=== PATIENT | female | born 1985 | race Caucasian/White ===

== ENCOUNTER 2017-08-10 15:24 | Inpatient (IN) | payer BC ==
[2017-08-10 16:33] VITALS: BMI 26.6
[2017-08-10 17:27] LABS: URINE APPEARANCE CLEAR; URINE BILIRUBIN NEGATIVE (<2.0 mg/dL); URINE COLOR STRAW; URINE GLUCOSE (UA) NEGATIVE (NEGATIVE); URINE KETONE NEGATIVE (NEGATIVE); URINE NITRITE NEGATIVE (NEGATIVE); URINE PROTEIN NEGATIVE (NEGATIVE); URINE UROBILINOGEN NEGATIVE mg/dL (0.2-1.0)
[2017-08-10 17:31] LABS: URINE LEUK ESTERASE 1+ (NEGATIVE)
[2017-08-10 17:33] LABS: EPI CELLS RARE /HPF (FEW); URINE BACTERIA RARE /hpf (NONE SEEN)
[2017-08-10 18:28] LABS: BASO % 0.4 % (0-2.0); EOS % 0.6 % (0-4.5); HEMATOCRIT 34.4 % (32.4-45.2); HEMOGLOBIN 11.4 GM/dL (10.7-15.3); LYMPH % 25.4 % (8-40); MCH 27.7 pg (25.7-33.7); MCHC 33.2 g/dl (32.0-36.0); MEAN CELL VOLUME 83.5 fl (80-96); MEAN PLT VOLUME 8.1 fl (7.5-11.1); MONO % 5.6 % (3.8-10.2); PLATELET COUNT 209 K/MM3 (134-434); RBC 4.12 M/mm3 (3.60-5.2); RDW 18.7 % (11.6-15.6)
[2017-08-10 18:30] LABS: RETICULOCYTES 1.9 % (0.5-1.5)
[2017-08-10 18:48] LABS: INR 0.88 (0.82-1.09)
[2017-08-10 18:58] LABS: ANION GAP 11 (8-16); BLOOD UREA NITROGEN 12 mg/dL (7-18); CALCIUM 8.7 mg/dL (8.5-10.1); CHLORIDE 103 mmol/L (98-107); CO2 24 mmol/L (21-32); CREATININE 0.7 mg/dL (0.55-1.02); GAMMA GLUTAMYL TRANSPEPTIDASE 11 U/L (5-85); GLUCOSE,RANDOM 109 mg/dL (74-106); POTASSIUM 3.6 mmol/L (3.5-5.1); SGOT/AST 20 U/L (15-37); SGPT/ALT 10 U/L (12-78); SODIUM 138 mmol/L (136-145); URIC ACID 4.9 mg/dL (2.6-7.2)
[2017-08-10] MEDS ORDERED: DINOPROSTONE 10 MG VAGINAL SUPPOSITORY VG ONE (20:45)
--- NOTE | 2017-08-10 21:44 | HP ---
Past Medical History - Admission History of Present Illness: 31 y/o female with h/o x 2 here for induction of labor 2/2 GHTN. Otherwise uncomplicated . Pt c/o occasional contractions, but nothing consistent. Denies LOF/VB. +FM. GBS negative/HIV negative. History Source: Medical Record Limitations to Obtaining History: No Limitations - Past Medical History Cardiovascular: No: AFIB, Aneurysm, Aortic Insufficiency, Aortic Stenosis, CAD, CHF, Deep Vein Thrombosis, HTN, Hyperlipdemia, NM, Mitral Insufficiency, Mitral Stenosis, Murmur, Pulmonary Hypertension, Other Gastrointestinal: No: Ascites, Cancer, Constipation, Crohn's Disease, Diverticulitis, Diverticulosis, Esophageal Varices, Gastritis, GERD, GI Bleed, Hemorrhoids, Hiatal Hernia, Inflamatory Bowel Disease, Irritable Bowel Disease, Pancreatitis, Peptic Ulcer Disease, Ulcerative Colitis, Other Reproductive: No: Fibroids, PID ...: 3 ...Para: 2 ...Term: 2 ...: 0 ...Spon : 0 ...Induced : 0 ...Multiple Gestation: 0 ...LMP: 11/04/16 ... Weeks Gestation by Dates: 39.6 ...EDC by Dates: 08/11/17 Infectious Disease: No: HIV, MRSA, STD's Psych: No: Anxiety, Depression Musculoskeletal: No: Bursitis, Chronic low back pain, Hemiparesis, Hemiplegia, Osteoarthritis, Paraplegia, Other Endocrine: No: Diabetes Mellitus, Hypothyroidism - Past Surgical History Past Surgical History: Yes: None Hx Myomectomy: No Hx Transabdominal Cerclage: No - Smoking History Smoking history: Never smoked Have you smoked in the past 12 months: No - Alcohol/Substance Use Hx Alcohol Use: No History of Substance Use: reports: None - Social History Usual Living Arrangement: Yes: With Spouse History of Recent Travel: No Home Medications - Allergies Allergies/Adverse Reactions: Allergies Allergy/AdvReac Type Severity Reaction Status Date / Time No Known Allergies Allergy Verified 08/10/17 16:21 - Home Medications Home Medications: Ambulatory Orders Vit27&Calcium/Iron/FA [ Rx 1 Tablet] 1 tab PO DAILY 07/12/11 Review of Systems - Review of Systems Constitutional: reports: No Symptoms Eyes: reports: No Symptoms HENT: reports: No Symptoms Neck: reports: No Symptoms Cardiovascular: reports: No Symptoms Respiratory: reports: No Symptoms Gastrointestinal: reports: No Symptoms Genitourinary: reports: No Symptoms, Other (occasional contractions). denies: Vaginal Bleeding Breasts: reports: No Symptoms Reported Musculoskeletal: reports: No Symptoms Integumentary: reports: No Symptoms Neurological: reports: No Symptoms Endocrine: reports: No Symptoms Hematology/Lymphatic: reports: No Symptoms Psychiatric: reports: No Symptoms Physical Exam - Maternity Vital Signs: Vital Signs Temperature 98.2 F 08/10/17 20:25 Pulse Rate 83 08/10/17 21:00 Respiratory Rate 20 08/10/17 21:00 Blood Pressure 126/77 08/10/17 21:00 O2 Sat by Pulse Oximetry (%) Constitutional: Yes: Well Nourished, No Distress, Calm Eyes: Yes: Conjunctiva Clear, EOM Intact HENT: Yes: Atraumatic, Normocephalic Neck: Yes: Supple, Trachea Midline Cardiovascular: Yes: Regular Rate and Rhythm Lungs: Clear to auscultation - Abdominal Exam/OB Fundal Height: 39 Number of Fetuses: Single Presentation: Vertex Contractions: Yes Regularity: Irregular Intensity: Mild Heart Rate (range): 130 Category: I Accelerations: Uniform Decelerations: None - Vaginal Exam/OB Dilatation (cm): 0 Effacement (%): 50 Amniotic Membrane Status: Intact Presentation: Vertex/Position Station: -3 - Physical Exam Psychiatric: Yes: Alert, Oriented - Labs Lab Results: CBC, BMP 08/10/17 17:15 08/10/17 17:15 Hemorrhage Risk Assessment - Risk Factors Medium Risk Factors: Yes: None High Risk Factors: Yes: None Risk Score: 1 Risk Level: Medium Risk Problem List - Problems (1) Gestational hypertension affecting third Code(s): O13.9 - GESTATIONAL HTN W/O SIGNIFICANT PROTEINURIA, UNSP TRIMESTER (2) Term Code(s): Z34.80 - ENCOUNTER FOR SUPRVSN OF NORMAL , UNSP TRIMESTER Assessment/Plan 31 y/o with SIUP at 39.6 weeks, IOL for gHTN - AFVSS - FHTS cat 1 - gHTN - labs normal, BPS WNL here on L&D, will monitor - IOL, cervidil placed, for removal/reassess in 12 hours - GBS negative
[2017-08-10] MEDS ORDERED: PROMETHAZINE HCL 25 MG/1 ML VIAL IVPB ONE (22:00)
[2017-08-10] MEDS ORDERED: BUTORPHANOL TARTRATE 1 MG/ML VIAL IVPB ONE (22:00)
[2017-08-11] MEDS ORDERED: ELECTROLYTE-148 SOLN 1,000 ML IV SCH
[2017-08-11] MEDS ORDERED: BUTORPHANOL TARTRATE 1 MG/ML VIAL ONE ×2 (02:16)
[2017-08-11] MEDS ORDERED: PROMETHAZINE HCL 25 MG/1 ML VIAL ONE (02:16)
[2017-08-11] MEDS ORDERED: OXYTOCIN 20 UNITS in 0.9% NS 20 UNIT/1,000 ML INFUS.BAG IV ONE ×2 (02:52→06:26)
[2017-08-11] MEDS ORDERED: LIDOCAINE HCL 1% PRESERVATIVE FREE - 30ML VIAL ONE (02:52)
--- NOTE | 2017-08-11 02:52 | PN ---
Ante-Partal Exam - Subjective Subjective: Pt s/p stadol/phenergan for pain control. Now comfortable/sleeping through contractions. Vital Signs: Vital Signs Temperature 98.6 F 08/11/17 00:00 Pulse Rate 77 08/11/17 02:00 Respiratory Rate 20 08/11/17 02:00 Blood Pressure 143/92 08/11/17 02:00 O2 Sat by Pulse Oximetry (%) Bleeding: Yes Bleeding Description: Mild Headache: No Visual changes: No Right upper quadrant pain: No - Contractions Contractions: Yes Regularity: Regular Intensity: Mild/Mod Monitor Mode: External - Exam during Labor Variability: Moderate Category: I Monitor Accelerations: Present Monitor Decelerations: Variable (non recurrent) Exam: Vaginal Dilatation (cm): 10 Effacement (%): 100 Amniotic Membrane Status: Intact Presentation: Vertex Station: 0 - Assessment/Plan Assessment/Plan: 31 y/o with SIUP at 40 weeks, IOL for gHTN - AFVSS - FHTs cat 1 overall, occasional isolated variables - s/p cervidil, pt now fully dilated, will begin pushing once mom more awake ( took stadol/phenergan)
[2017-08-11] MEDS: OXYTOCIN 20 UNITS in 0.9% NS 20 UNIT/1,000 ML INFUS.BAG IV SCH (03:22)
[2017-08-11] MEDS ORDERED: IBUPROFEN 600 MG TABLET (FP) PO PRN (03:27)
[2017-08-11] MEDS ORDERED: BENZOCAINE 20% 57 GM BOTTLE TP PRN (03:27)
[2017-08-11] MEDS ORDERED: WITCH HAZEL 50% (TUCKS) 40 PAD/JAR PAD TP PRN (03:27)
[2017-08-11] MEDS ORDERED: ACETAMINOPHEN 325 MG TABLET (FP) PO PRN (03:27)
[2017-08-11] MEDS ORDERED: BENZOCAINE 28 GM HEMORRHOIDAL OINTMENT TP PRN (03:27)
[2017-08-11] MEDS ORDERED: METHYLERGONOVINE MALEATE 0.2 MG/1 ML AMP IM PRN (03:27)
[2017-08-11] MEDS ORDERED: BISACODYL 10 MG SUPP.RECT RC PRN (03:27)
--- NOTE | 2017-08-11 03:27 | PN ---
Delivery - Delivery Vaginal Delivery: No Problems Type of Anesthesia: Local (10cc of 1% lidocaine injected into perineum after delivery prior to repair of 1st degree laceration) Episiotomy/Laceration: 1st degree EBL (cc): 300 Delivery, Single - Stages of Labor Date of Delivery: 08/11/17 Time of Delivery: 03:13 Date Placenta Delivered: 08/11/17 Time Placenta Delivered: 03:22 Placenta: Yes: Spontaneous - Condition of Infant Infant Gender: Male Position: Right, OP - 1 Minute Total Score: 9 5 Minutes Total Score: 9 - [place] Feeding Plan Initial Plan: Exclusive throughout hospitalization Remarks - Remarks Remarks: 31 y/o s/p normal from ROP position anterior shoulder (left) delivered with ease along with remainder of cord clamped and cut mouth and nose bulb suctioned 1st degree laceration noted, repaired with 2-0 chromic after injection with 8cc 1% lidocaine placenta delivered in tact and spontaneously sponge count correct after delivery mom stable baby to well baby nursery
[2017-08-11] MEDS ORDERED: TUBERCULIN PPD 5 TU/0.1ML SYRINGE (IN PATIENT USE ONLY) ID ONE (04:30)
[2017-08-11] MEDS: PRENATAL VITAMINS W/ FOLIC ACID TABLET (FP) PO SCH (09:45)
[2017-08-12 07:30] LABS: BASO % 0.5 % (0-2.0); EOS % 1.2 % (0-4.5); HEMATOCRIT 28.8 % (32.4-45.2); HEMOGLOBIN 9.8 GM/dL (10.7-15.3); LYMPH % 27.2 % (8-40); MCH 28.5 pg (25.7-33.7); MEAN CELL VOLUME 83.8 fl (80-96); MEAN PLT VOLUME 7.3 fl (7.5-11.1); MONO % 6.7 % (3.8-10.2); NEUT % 64.4 % (42.8-82.8); PLATELET COUNT 168 K/MM3 (134-434); RBC 3.44 M/mm3 (3.60-5.2); RDW 18.5 % (11.6-15.6)
[2017-08-12] MEDS: PRENATAL VITAMINS W/ FOLIC ACID TABLET (FP) PO SCH (10:00)
[2017-08-12] MEDS ORDERED: DIPHTH,PERTUSS(ACELL),TET 0.5 ML DISP.SYRIN IM ONE (12:00)
--- NOTE | 2017-08-12 15:16 | PN ---
Post Note - Post Date of Delivery: 08/11/17 Post Day: 1 Vital Signs: Vital Signs - 24 hr 08/11/17 08/12/17 21:19 08:54 Temperature 98.1 F 97.7 F Pulse Rate 88 73 Respiratory 20 18 Rate Blood Pressure 118/86 129/78 Labs: Laboratory Results - last 24 hr 08/10/17 08/12/17 17:15 07:06 WBC 10.0 RBC 3.44 L Hgb 9.8 L D Hct 28.8 L D MCV 83.8 MCH 28.5 MCHC 34.0 RDW 18.5 H Plt Count 168 MPV 7.3 L Neutrophils % 64.4 Lymphocytes % 27.2 Monocytes % 6.7 Eosinophils % 1.2 D Basophils % 0.5 Haptoglobin 122 - Subjective Subjective: No Complaints, Ambulating, Tolerating Diet - Objective Afebrile: Yes Breast: Not engorged Abdomen: Soft, Non-tender Uterus: Fundus firm Vagina: Scant lochia Extremities: Non-tender - Assessment/Plan (1) Status post normal vaginal delivery Assessment: S/P Normal Plan: Routine Care
[2017-08-12] MEDS: OXYTOCIN 20 UNITS in 0.9% NS 20 UNIT/1,000 ML INFUS.BAG IV SCH (17:44)
[2017-08-12] MEDS ORDERED: SENNOSIDES/DOCUSATE COMBO (SENNA PLUS) TABLET (UD) PO PRN (22:00)
--- NOTE | 2017-08-13 08:02 | DS ---
Physical Exam-JERKER Vital Signs: Vital Signs Temperature 98.0 F 08/12/17 22:00 Pulse Rate 81 08/12/17 22:00 Respiratory Rate 18 08/12/17 22:00 Blood Pressure 114/65 08/12/17 22:00 O2 Sat by Pulse Oximetry (%) 100 08/11/17 04:25 Constitutional: Yes: Well Nourished, No Distress, Calm Eyes: Yes: WNL, Conjunctiva Clear HENT: Yes: WNL, Atraumatic, Pharyngeal Erythema Neck: Yes: WNL, Supple, Trachea Midline Cardiovascular: Yes: WNL, Regular Rate and Rhythm Respiratory: Yes: WNL, Regular Gastrointestinal: Yes: WNL, Normal Bowel Sounds ...Rectal Exam: Yes: WNL Renal/: Yes: WNL Pelvis: Yes: WNL External Genitalia: Yes: Normal Internal Exam Deferred: Yes Vaginal Exam: Yes: Normal Uterus: Yes: Normal, Firm Adnexa: Normal: Right, Left ....Post : Yes: Uterus firm, Moderate lochia rubra Breast(s): Yes: WNL Musculoskeletal: Yes: WNL Extremities: Yes: WNL Edema: No Integumentary: Yes: WNL Neurological: Yes: WNL Psychiatric: Yes: Alert, Oriented Labs: CBC, BMP 08/12/17 07:06 08/10/17 17:15 Delivery - Delivery Vaginal Delivery: No Problems Type of Anesthesia: Local Episiotomy/Laceration: 1st degree EBL (cc): 300 Delivery, Single - Stages of Labor Date 1st Stage Initiatied: 08/10/17 Time 1st Stage Initiated: 20:20 Date 2nd Stage Initiated: 08/11/17 Time 2nd Stage Initiated: 02:45 Date of Delivery: 08/11/17 Time of Delivery: 03:13 Time Placenta Delivered: 03:22 Placenta: Yes: Spontaneous - Condition of Finance Lead/Manager Merchandise Present: No Gender: Male Weight: 7 lb 7 oz Position: Right, OP Total Hours ROM (Hrs/Mins): 0Hrs/2Mins - 1 Minute Total Score: 9 5 Minutes Total Score: 9 - Feeding Plan Initial Plan: Exclusive throughout hospitalization Discharge Summary Reason For Visit: INDUCTION Current Active Problems Gestational hypertension affecting third (Acute) Term (Acute) Condition: Good - Instructions Diet, Activity, Other Instructions: regular diet Referrals: Rachel Elizabeth DO [Staff Physician] - - Home Medications Comprehensive Discharge Medication List: Ambulatory Orders Vit27&Calcium/Iron/FA [ Rx 1 Tablet] 1 tab PO DAILY 07/12/11 motrin prn pain
[2017-08-13 09:12] VITALS: BP 115/65; PULSE 85; TEMP 98.4
[2017-08-13] MEDS: PRENATAL VITAMINS W/ FOLIC ACID TABLET (FP) PO SCH (09:43)
== END 2017-08-13 12:40 | disposition home or self-care (01) | DRG 775 ==
LOC: JLDR 15:24 → J3W 08-11 11:54
PROVIDERS: ADMIT Obstetrics & Gynecology; ATTEND Obstetrics & Gynecology
PROC: 0HQ9XZZ Repair Perineum Skin, External Approach (ICD-10-PCS; principal; 2017-08-11)
PROC: 10E0XZZ Delivery of Products of Conception, External Approach (ICD-10-PCS; 2017-08-11)
DX: O13.4 Gestational [pregnancy-induced] hypertension without significant proteinuria, complicating childbirth (principal); O70.0 First degree perineal laceration during delivery; Z3A.39 39 weeks gestation of pregnancy; Z37.0 Single live birth
CPT/HCPCS: 36415; 59409; 80048; 81003; 81015; 82977; 83010; 84450; 84460; 84550; 85025; 85032; 85044; 85610; 85730; 86593; 86850; 86900; 86901; 87389; 90715

== ENCOUNTER 2019-06-16 04:50 | Inpatient (IN) | payer BC ==
[2019-06-16 06:24] VITALS: BMI 28.0
[2019-06-16] MEDS ORDERED: PROMETHAZINE HCL 25 MG/1 ML VIAL IVPUSH ONE (06:28)
[2019-06-16] MEDS ORDERED: BUTORPHANOL TARTRATE 1 MG/ML VIAL IVPB ONE (06:28)
--- NOTE | 2019-06-16 06:28 | HP ---
Past Medical History - Primary Care Physician PCP:: Sherie Whiting - Admission Chief Complaint: Gestation Hypertension. Prodromal labor. AMA History of Present Illness: 33 yo EDC 06/23/2019 EGA 39 week admitted in labor No NIELSON no bleeding History Source: Patient Limitations to Obtaining History: No Limitations - Past Medical History ...: 4 ...Para: 3 ...Term: 3 ...: 0 ...Spon : 0 ...Induced : 0 ...LMP: 09/15/18 ... Weeks Gestation by Dates: 39.0 ...EDC by Dates: 06/23/19 ...EDC by Sono: 06/22/19 - Past Surgical History Past Surgical History: Yes: None - Smoking History Smoking history: Never smoked Have you smoked in the past 12 months: No - Alcohol/Substance Use Hx Alcohol Use: No History of Substance Use: reports: None - Social History History of Recent Travel: No Home Medications - Allergies Allergies/Adverse Reactions: Allergies Allergy/AdvReac Type Severity Reaction Status Date / Time No Known Allergies Allergy Verified 06/16/19 05:40 - Home Medications Home Medications: Ambulatory Orders Vit27&Calcium/Iron/FA [ Rx 1 Tablet] 1 tab PO DAILY 07/12/11 Review of Systems - Review of Systems Constitutional: reports: No Symptoms Eyes: reports: No Symptoms HENT: reports: No Symptoms Neck: reports: No Symptoms Cardiovascular: reports: No Symptoms Respiratory: reports: No Symptoms Gastrointestinal: reports: No Symptoms Genitourinary: reports: No Symptoms Breasts: reports: No Symptoms Reported Musculoskeletal: reports: No Symptoms Integumentary: reports: No Symptoms Neurological: reports: No Symptoms Endocrine: reports: No Symptoms Hematology/Lymphatic: reports: No Symptoms Psychiatric: reports: No Symptoms Physical Exam - Maternity Vital Signs: Vital Signs Temperature 98.2 F 06/16/19 05:41 Pulse Rate 78 06/16/19 05:41 Respiratory Rate 18 06/16/19 05:41 Blood Pressure 142/90 06/16/19 05:41 O2 Sat by Pulse Oximetry (%) Constitutional: Yes: Well Nourished, No Distress - Abdominal Exam/OB Fundal Height: 40 Number of Fetuses: Single Presentation: Vertex Contractions: Yes Regularity: Irregular Monitor Mode: External Heart Rate (range): 120 Heart Rate Location: [facility] Category: I Accelerations: Non-Uniform Decelerations: None - Vaginal Exam/OB Vaginal Bleediing: No Speculum Exam: Yes Dilatation (cm): 2 Amniotic Membrane Status: Intact Presentation: Vertex/Position - Physical Exam Musculoskeletal: Yes: WNL Extremities: Yes: WNL Hemorrhage Risk Assessment - Risk Factors Risk Score: 0 Risk Level: Low Risk Problem List - Problems (1) Gestational hypertension affecting third Code(s): O13.9 - GESTATIONAL HTN W/O SIGNIFICANT PROTEINURIA, UNSP TRIMESTER Assessment/Plan Gestational hypertension iup @ 39 week Plan Admit to LD pitocin augmentation
[2019-06-16] MEDS ORDERED: ELECTROLYTE-148 SOLN 1,000 ML IV SCH (06:30)
[2019-06-16] MEDS ORDERED: OXYTOCIN 30 UNITS in 0.9% NS 30 UNIT/500 ML INFUS.BAG IVPB SCH (06:45)
[2019-06-16 07:35] LABS: INR 0.88 (0.83-1.09); PROTHROMBIN TIME (PATIENT) 10.4 SEC (9.7-13.0)
[2019-06-16 07:38] LABS: ACTIVATED PTT 26.1 SECONDS (25.2-36.5)
[2019-06-16 07:43] LABS: BASO % 0.3 % (0-2.0); EOS % 1.2 % (0-4.5); HEMATOCRIT 31.1 % (32.4-45.2); HEMOGLOBIN 10.4 GM/dL (10.7-15.3); LYMPH % 24.3 % (8-40); MCH 27.9 pg (25.7-33.7); MCHC 33.3 g/dl (32.0-36.0); MEAN CELL VOLUME 83.9 fl (80-96); MEAN PLT VOLUME 7.6 fl (7.5-11.1); MONO % 7.6 % (3.8-10.2); NEUT % 66.6 % (42.8-82.8); PLATELET COUNT 217 K/MM3 (134-434); RBC 3.71 M/mm3 (3.60-5.2); RDW 14.9 % (11.6-15.6); WHITE BLOOD COUNT 7.6 K/mm3 (4.0-10.0)
[2019-06-16 07:50] LABS: CALCIUM 7.9 mg/dL (8.5-10.1); CREATININE 0.5 mg/dL (0.55-1.3); POTASSIUM 3.5 mmol/L (3.5-5.1)
[2019-06-16] MEDS ORDERED: DINOPROSTONE 10 MG VAGINAL SUPPOSITORY VG ONE (08:57)
--- NOTE | 2019-06-16 08:59 | PN ---
Ante-Partal Exam - Subjective Vital Signs: Vital Signs Temperature 98.1 F 06/16/19 08:28 Pulse Rate 79 06/16/19 08:28 Respiratory Rate 20 06/16/19 08:28 Blood Pressure 123/77 06/16/19 08:28 O2 Sat by Pulse Oximetry (%) - Exam during Labor Heart Rate: 120 Variability: Moderate Heart Rate Location: [facility] Category: I Monitor Decelerations: None Exam: Vaginal (CERVIDL PLACED) Dilatation (cm): 2 Amniotic Membrane Status: Intact Presentation: Vertex
[2019-06-16] MEDS ORDERED: PROMETHAZINE HCL 25 MG/1 ML VIAL ONE (18:09)
[2019-06-16] MEDS ORDERED: BUTORPHANOL TARTRATE 1 MG/ML VIAL ONE ×2 (18:09)
[2019-06-16] MEDS ORDERED: OXYTOCIN 20 UNITS in 0.9% NS 20 UNIT/1,000 ML INFUS.BAG IV ONE (18:24)
[2019-06-16] MEDS ORDERED: IBUPROFEN 600 MG TABLET (FP) PO PRN (18:31)
[2019-06-16] MEDS ORDERED: BENZOCAINE 28 GM HEMORRHOIDAL OINTMENT PR PRN (18:31)
[2019-06-16] MEDS ORDERED: BISACODYL 10 MG SUPP.RECT PR PRN (18:31)
[2019-06-16] MEDS ORDERED: BENZOCAINE 20% 57 GM BOTTLE TP PRN (18:31)
[2019-06-16] MEDS ORDERED: METHYLERGONOVINE MALEATE 0.2 MG/1 ML AMP IM PRN (18:31)
[2019-06-16] MEDS ORDERED: WITCH HAZEL 50% (TUCKS) 40 PAD/JAR PAD TP PRN (18:31)
[2019-06-16] MEDS ORDERED: ACETAMINOPHEN 325 MG TABLET (FP) PO PRN (18:31)
--- NOTE | 2019-06-16 18:41 | PN ---
Delivery - Delivery Vaginal Delivery: No Problems (by nurse pt had precipitous delivery prior to arrival) Episiotomy/Laceration: None Delivery, Single - [place] Feeding Plan Initial Plan: Elected not to breastfeed exclusively throughout hospitalization
--- NOTE | 2019-06-16 18:41 | PN ---
Delivery - Delivery Vaginal Delivery: No Problems, Spontaneous Type of Anesthesia: None Episiotomy/Laceration: None EBL (cc): 400 Delivery, Single - Stages of Labor Placenta: Yes: Spontaneous - Condition of Infant Key Carrier/Art Glass Designer Present: No Infant Gender: Female - Feeding Plan Initial Plan: Elected not to breastfeed exclusively throughout hospitalization Remarks - Remarks Remarks: Called by nursing staff that patient was active and ready to deliver. Arrived in labor room and patient already delivered in bed. Cord clamped and cut. Pt then positioned. Placenta delivered intact with 3vc. No perineal or cervical laceration. Fundus firm. Mother and infant stable. Dr. Whiting informed by nursing staff
[2019-06-16] MEDS ORDERED: OXYTOCIN 20 UNITS in 0.9% NS 20 UNIT/1,000 ML INFUS.BAG IV SCH (18:45)
[2019-06-16] MEDS ORDERED: LABETALOL HCL 200 MG TABLET (FP) PO ONE (20:15)
[2019-06-16] MEDS ORDERED: LABETALOL HCL 200 MG TABLET (FP) ONE (20:38)
[2019-06-17 09:11] LABS: BASO % 0.6 % (0-2.0); EOS % 0.7 % (0-4.5); HEMATOCRIT 28.8 % (32.4-45.2); HEMOGLOBIN 9.8 GM/dL (10.7-15.3); LYMPH % 19.3 % (8-40); MCH 28.4 pg (25.7-33.7); MCHC 33.8 g/dl (32.0-36.0); MEAN CELL VOLUME 83.8 fl (80-96); MEAN PLT VOLUME 7.3 fl (7.5-11.1); MONO % 7.2 % (3.8-10.2); NEUT % 72.2 % (42.8-82.8); PLATELET COUNT 204 K/MM3 (134-434); RBC 3.44 M/mm3 (3.60-5.2); RDW 15.2 % (11.6-15.6); WHITE BLOOD COUNT 9.9 K/mm3 (4.0-10.0)
[2019-06-17] MEDS ORDERED: DIPHTH,PERTUSS(ACELL),TET 0.5 ML DISP.SYRIN IM ONE (10:15)
--- NOTE | 2019-06-17 12:27 | PN ---
Post Note - Post Date of Delivery: 06/16/19 Post Day: 1 Vital Signs: Vital Signs - 24 hr 06/16/19 06/16/19 06/16/19 13:00 14:25 16:00 Temperature 98.5 F 98.5 F 98.2 F Pulse Rate 87 80 83 Respiratory 20 20 20 Rate Blood Pressure 140/93 126/85 152/93 O2 Sat by Pulse Oximetry (%) 06/16/19 06/16/19 06/16/19 17:00 18:00 19:15 Temperature 98.5 F Pulse Rate 83 76 81 Respiratory 20 20 20 Rate Blood Pressure 148/77 135/89 149/80 O2 Sat by Pulse 100 Oximetry (%) 06/16/19 06/16/19 06/16/19 19:30 19:45 20:00 Temperature 98.4 F Pulse Rate 76 75 69 Respiratory 20 20 20 Rate Blood Pressure 142/86 150/88 145/85 O2 Sat by Pulse 99 100 99 Oximetry (%) 06/16/19 06/16/19 06/17/19 20:45 21:00 01:52 Temperature 98.0 F 98.0 F 98.2 F Pulse Rate 91 H 87 86 Respiratory 20 20 20 Rate Blood Pressure 141/87 141/87 113/55 L O2 Sat by Pulse Oximetry (%) 06/17/19 06/17/19 06/17/19 05:44 08:00 09:00 Temperature 98.3 F 98.1 F Pulse Rate 79 75 Respiratory 20 20 Rate Blood Pressure 106/56 L 123/76 O2 Sat by Pulse 99 Oximetry (%) 06/17/19 11:54 Temperature 98.1 F Pulse Rate 79 Respiratory 20 Rate Blood Pressure 116/72 O2 Sat by Pulse Oximetry (%) Labs: Laboratory Results - last 24 hr 06/16/19 06/17/19 06:15 08:35 WBC 9.9 RBC 3.44 L Hgb 9.8 L Hct 28.8 L MCV 83.8 MCH 28.4 MCHC 33.8 RDW 15.2 Plt Count 204 MPV 7.3 L Absolute Neuts (auto) 7.2 Neutrophils % 72.2 Lymphocytes % 19.3 D Monocytes % 7.2 Eosinophils % 0.7 Basophils % 0.6 Nucleated RBC % 0 RPR Titer Nonreactive - Subjective Subjective: No Complaints, Ambulating - Objective Afebrile: Yes Breast: Not engorged Abdomen: Soft, Non-tender Uterus: Fundus firm Vagina: Scant lochia Extremities: Non-tender - Assessment/Plan (1) Gestational hypertension affecting third Assessment: S/P Normal Plan: Routine Care
[2019-06-18 11:07] VITALS: BP 131/76; PULSE 91; TEMP 97.6
--- NOTE | 2019-06-18 12:32 | DS ---
Physical Exam-CLINICAL SUPPORT NURSE Vital Signs: Vital Signs Temperature 97.6 F 06/18/19 10:00 Pulse Rate 91 H 06/18/19 10:00 Respiratory Rate 18 06/18/19 10:00 Blood Pressure 131/76 06/18/19 10:00 O2 Sat by Pulse Oximetry (%) 99 06/17/19 09:00 Constitutional: Yes: Well Nourished, No Distress ....Post : Yes: Uterus firm, Uterus non-tender Wound/Incision: Yes: Steri Strips, Open to air Neurological: Yes: WNL, Alert, Oriented Labs: CBC, BMP 06/17/19 08:35 06/16/19 06:15 Delivery - Delivery Vaginal Delivery: No Problems (by nurse pt had precipitous delivery prior to arrival) Type of Anesthesia: None Episiotomy/Laceration: None EBL (cc): 250 Delivery, Single - Stages of Labor Date 1st Stage Initiatied: 06/16/19 Time 1st Stage Initiated: 17:30 Date 2nd Stage Initiated: 06/16/19 Time 2nd Stage Initiated: 18:22 Date of Delivery: 06/16/19 Time of Delivery: 18:23 Time Placenta Delivered: 18:30 Placenta: Yes: Spontaneous - Condition of Tire Vulcanizer/Television News Anchor Present: No Infant Gender: Female Weight: 7 lb 2 oz Position: Right, OA Total Hours ROM (Hrs/Mins): 8 - 1 Minute Total Score: 9 5 Minutes Total Score: 9 - [place] Feeding Plan Initial Plan: Elected not to breastfeed exclusively throughout hospitalization Discharge Summary Problems reviewed: Yes Reason For Visit: ADMIT LABOR Normal vaginal delivery Condition: Stable - Instructions Referrals: Sherie Whiting MD [Family Provider] - Disposition: HOME - Home Medications Comprehensive Discharge Medication List: Ambulatory Orders Vit27&Calcium/Iron/FA [ Rx 1 Tablet] 1 tab PO DAILY 07/12/11 Ibuprofen [Motrin -] 600 mg PO QID #28 tablet 06/17/19 Amoxicillin/Potassium Clav [Augmentin 500-125 Tablet] 1 each PO ASDIR #10 tablet 06/18/19
== END 2019-06-18 13:45 | disposition home or self-care (01) | DRG 807 ==
LOC: JDEL 04:50 → JLDR 06:00 → J3W 20:55
PROVIDERS: ADMIT Obstetrics & Gynecology; ATTEND Obstetrics & Gynecology
PROC: 10E0XZZ Delivery of Products of Conception, External Approach (ICD-10-PCS; principal; 2019-06-16)
DX: O13.4 Gestational [pregnancy-induced] hypertension without significant proteinuria, complicating childbirth (principal); Z37.0 Single live birth; Z3A.39 39 weeks gestation of pregnancy
CPT/HCPCS: 36415; 59409; 80048; 85025; 85610; 85730; 86593; 86850; 86900; 86901; 87389; 90715